=== PATIENT | female | born 1935 | race Two or more races ===

== ENCOUNTER 2024-07-15 14:35 | Emergency (ER) | payer OTHER ==
[~2024-07-15] VITALS: Ht 157.5 cm; Wt 63.5 kg
[2024-07-15] MEDS ORDERED: AMLODIPINE-OLM1 EAC2 PO (15:19)
[2024-07-15] MEDS ORDERED: LOSARTAN-HCTZ1 EAC2 PO (15:19)
[2024-07-15] MEDS ORDERED: ESTAZOLAM2 MG PO (15:20)
[2024-07-15] MEDS ORDERED: HUMULIN 70100 UNIT/2 SQ (15:20)
== END 2024-07-15 18:46 | disposition home or self-care (01) ==
LOC: ER 14:38
DX: G56.00 Carpal tunnel syndrome, unspecified upper limb (principal); I10 Essential (primary) hypertension; E11.9 Type 2 diabetes mellitus without complications; Z79.4 Long term (current) use of insulin; Z88.6 Allergy status to analgesic agent